=== PATIENT | female | born 1940 | race African-American/Black ===

== ENCOUNTER → 2017-01-20 | Outpatient (CLI) | payer OTHER ==
--- NOTE | ~2017-01-20 | MY11 ---
[facility] A Service of [facility] & [facility] RADIOLOGY TEXT RESULTS PATIENT: GIO MARIA LOCATION: [facility] : 44 UNIT #: [id number] AGE: [address]: KENROY COOK SEX: F ORDER DR: [id number] [facility] [address] [place], [place] [address] [id number] O MR#: [id number] Acc #: [id number] NAME: GIO MARIA : 1940 SEX: F STUDY DATE/TIME: 01/20/2017 13:55 UNIT: [facility] ROOM: STUDY DESCRIPTION: MY Mammogram Screening Dig Rafael Attending Physician: Dana Cook M.D. Referring Physician: Merry Lin M.D. Ordering Physician: Physician Non-Staff Primary Care Physician: Merry Lin M.D. MEDICAL IMAGING REPORT This report is preliminary unless electronic signature is present EXAM Digital screening mammogram, 01/20/2017 HISTORY 76-year-old woman no risk elevation. Annual screening. COMPARISON Mammograms date to 01/21/2011 with most recent 11/08/2015. FINDINGS Digital imaging of each breast was completed utilizing a two-view examination of each breast in craniocaudal and mediolateral-oblique projections. Review and interpretation of digital mammograms include a second review in conjunction with FDA-approved CAD device. There is a normal parenchymal presentation bilaterally consistent with the patient's age. There are no breast masses imaged and no parenchymal asymmetry is visualized. There are no suspicious microcalcifications and I see no focal architectural disturbance. IMPRESSION Negative screening digital mammogram. One-year followup recommended. Patients over the age of 40 are entered into a reminder system with target due date for the next mammogram. A result letter will also be sent to the patient. BIRADS: 1 Negative Dictated by... Emmanuel Machuca M.D. THIS IS AN ELECTRONICALLY VERIFIED REPORT Emmanuel Machuca M.D. at 01/21/2017 8:06 AM [facility] A Service of [facility] & [facility] RADIOLOGY TEXT RESULTS PATIENT: GIO MARIA LOCATION: [facility] : 44 UNIT #: [id number] AGE: [address]: KENROY COOK SEX: F ORDER DR: Suzanne TD: 01/20/2017 20:12 JOB #: [id number] MEDICAL IMAGING REPORT Page 1 of 1 COPY
== END | disposition home or self-care (01) ==
LOC: CWCC 13:30
DX: Z12.31 Encounter for screening mammogram for malignant neoplasm of breast (principal)
CPT/HCPCS: G0202